=== PATIENT | male | born 1950 | race Hispanic/Latino ===

== ENCOUNTER 2018-01-24 21:51 | Emergency (ER) | payer MEDICARE ==
[~2018-01-24 21:51] MED LIST: GLIP1TAB6 PO; LEVO500T2 PO; LINA5TAB PO; OSEL75 PO; PRED50TA2 PO
[2018-01-24] MEDS ORDERED: LIDOCAINE HCL MPF 1% 5ML VIAL ONE (22:04)
[2018-01-24] MEDS ORDERED: TETANUS/DIPHTHERIA TOXOID [ADULT] 0.5 ML VIAL IM ONE (22:47)
== END 2018-01-24 23:05 | disposition home or self-care (01) ==
LOC: EDH 21:51
DX: S61.411A Laceration without foreign body of right hand, initial encounter (principal); E11.9 Type 2 diabetes mellitus without complications; W26.8XXA Contact with other sharp object(s), not elsewhere classified, initial encounter; Y93.89 Activity, other specified; Y92.096 Garden or yard of other non-institutional residence as the place of occurrence of the external cause; Y99.8 Other external cause status
CPT/HCPCS: 12042; 90471; 90714; 99284; J3490

== ENCOUNTER 2021-01-11 15:17 | Emergency (ER) | payer MEDICARE, OTHER ==
[~2021-01-11] VITALS: Ht 160 cm; Wt 68.0 kg
[2021-01-11] MEDS ORDERED: ACETAMINOPHEN 650 MG/20.3 ML UDCUP PEG ONE (15:30)
[2021-01-11 16:21] LABS: BASOPHILS % (AUTO) 0.2 % (0.0-5.0); HEMATOCRIT 40.5 % (42-54); LYMPHOCYTES % (AUTO) 18.4 % (21.0-51.0); MEAN CORPUSCULAR HEMOGLOBIN 30.6 pg (27.0-33.0); MEAN CORPUSCULAR HGB CONC 33.1 g/dL (32.0-36.0); MEAN CORPUSCULAR VOLUME 92.5 fL (79-99); MONOCYTES % (AUTO) 2.9 % (3.0-13.0); NEUTROPHILS % (AUTO) 77.8 % (40.0-77.0); PLATELET COUNT (AUTO) 89 K/uL (130-400); RED BLOOD CELL COUNT(AUTO) 4.38 MIL/uL (4.50-6.20); RED CELL DISTRIBUTION WIDTH 13.1 % (11.0-15.5); WHITE BLOOD COUNT (AUTO) 4.1 K/uL (4.8-10.8)
[2021-01-11 16:39] LABS: CREATININE 2.7 mg/dL (0.5-1.5); POTASSIUM 4.9 mmol/L (3.5-5.1)
[2021-01-11 16:43] LABS: ALBUMIN 2.9 g/dL (3.5-5.0); BILIRUBIN,TOTAL 0.4 mg/dL (0.2-1.0); CRP QUANTITATIVE 133.4 mg/L (0.00-9.0); TOTAL PROTEIN, SERUM 7.7 g/dL (6.0-8.3)
[2021-01-11] MEDS ORDERED: GUAIFENESIN-CODEINE 5 ML SYRUP PO ONE (17:00)
[2021-01-11] MEDS ORDERED: IVER3TAB PO (17:40)
[2021-01-11] MEDS ORDERED: FLUT1DIS IH (17:40)
[2021-01-11] MEDS ORDERED: ALBUHFA IH (17:40)
[2021-01-11] MEDS ORDERED: D-ME1POW16 PO (17:40)
[2021-01-11] MEDS ORDERED: CEFTRIAXONE 1G VIAL ONE (17:49)
[2021-01-11 18:40] VITALS: BP 101/63
== END 2021-01-11 18:54 | disposition home or self-care (01) ==
LOC: EDH 15:17
DX: U07.1 COVID-19 (principal); J22 Unspecified acute lower respiratory infection; B34.9 Viral infection, unspecified; I10 Essential (primary) hypertension; Z79.52 Long term (current) use of systemic steroids
CPT/HCPCS: 36415; 71045; 80053; 85025; 86140; 87635; 87804 ×2; 87880; 99284; C9803; J0696

== ENCOUNTER 2021-01-17 15:52 | Inpatient (IN) | payer OTHER ==
[~2021-01-17] VITALS: Ht 170.2 cm; Wt 63.9 kg
[~2021-01-17 15:52] MED LIST changes: +ALBUHFA IH; +D-ME1POW16 PO; +FLUT1DIS IH; +IVER3TAB PO
[2021-01-17 16:25] LABS: ABG BASE EXCESS -7.3 mmol/L (-2.0-3.0); ABG HCO3 16.8 mmol/L (21.0-28.0); ABG OXYGEN SATURATION 84.5 % (95.0-99.0); ABG PCO2 31 mmHg (35-48)
[2021-01-17 16:29] LABS: BASOPHILS % (AUTO) 0.2 % (0.0-5.0); HEMATOCRIT 36.8 % (42-54); LYMPHOCYTES % (AUTO) 4.8 % (21.0-51.0); MEAN CORPUSCULAR HEMOGLOBIN 30.5 pg (27.0-33.0); MEAN CORPUSCULAR HGB CONC 33.7 g/dL (32.0-36.0); MEAN CORPUSCULAR VOLUME 90.4 fL (79-99); MONOCYTES % (AUTO) 1.5 % (3.0-13.0); NEUTROPHILS % (AUTO) 92.3 % (40.0-77.0); PLATELET COUNT (AUTO) 105 K/uL (130-400); RED BLOOD CELL COUNT(AUTO) 4.07 MIL/uL (4.50-6.20); RED CELL DISTRIBUTION WIDTH 13.2 % (11.0-15.5); WHITE BLOOD COUNT (AUTO) 5.8 K/uL (4.8-10.8)
[2021-01-17] MEDS ORDERED: AZITHROMYCIN 500MG VIAL IVPB ONE (16:30)
[2021-01-17] MEDS ORDERED: SOLU-MEDROL 125MG VIAL IVP ONE (16:30)
[2021-01-17] MEDS ORDERED: CEFTRIAXONE 1G VIAL IVP ONE (16:30)
[2021-01-17] MEDS ORDERED: 0.9% NACL 250ML IVPB ONE (16:30)
[2021-01-17 16:46] LABS: ALBUMIN 1.9 g/dL (3.5-5.0); BILIRUBIN,TOTAL 0.7 mg/dL (0.2-1.0); CREATININE 3.7 mg/dL (0.5-1.5); POTASSIUM 4.6 mmol/L (3.5-5.1); TOTAL PROTEIN, SERUM 7.5 g/dL (6.0-8.3)
[2021-01-17 16:54] LABS: CRP QUANTITATIVE 452.2 mg/L (0.00-9.0)
[2021-01-17 17:07] VITALS: BP 135/84
[2021-01-17] MEDS ORDERED: SOLU-MEDROL 125MG VIAL ONE (17:50)
[2021-01-17] MEDS ORDERED: CEFTRIAXONE 1G VIAL ONE (17:51)
[2021-01-17] MEDS ORDERED: AZITHROMYCIN 500MG+NS 250ML 250 ML IV ONE (17:51)
[2021-01-17 17:52] LABS: ERYTHROCYTE SEDIMENTATION RATE 104 MM/HR (0-20)
[2021-01-17] MEDS: ALBUTEROL INHALER 90MCG/INH IH PRN ×2 (17:56→19:09)
[2021-01-17 18:48] VITALS: BP 126/61
[2021-01-17] MEDS ORDERED: ERGOCALCIFEROL (VITAMIN D2) 50,000 UNIT CAPSULE PO ONE (19:00)
[2021-01-17] MEDS ORDERED: LACTATED RINGERS 1000ML 1,000 ML IV SCH (19:00)
[2021-01-17 19:15] VITALS: BP 137/83
[2021-01-17 20:00] VITALS: BP 141/78
[2021-01-17] MEDS ORDERED: HEPARIN 5,000 UNIT VIAL ONE (20:33)
[2021-01-17 21:00] VITALS: BP 154/78
[2021-01-17] MEDS: CEFTRIAXONE 1G VIAL IVP SCH (21:00)
[2021-01-17] MEDS: DOXYCYCLINE 100MG+NS 250ML IV SCH (21:00)
[2021-01-17] MEDS: INSULIN GLARGINE 100 UNITS/ML 10 ML VIAL SQ SCH (21:10)
[2021-01-17] MEDS: DEXAMETHASONE SOD PHOSPHATE 4 MG/ML 1ML VIAL IVP SCH (21:10)
[2021-01-17] MEDS: INSULIN HUMULIN R 100 UNIT/ML 3ML SQ SCH (21:11)
[2021-01-17] MEDS ORDERED: ERGOCALCIFEROL (VITAMIN D2) 50,000 UNIT CAPSULE ONE (21:39)
[2021-01-17 23:20] VITALS: BP 154/86
[2021-01-18 03:37] VITALS: BP 154/88
[2021-01-18 05:26] LABS: BASOPHILS % (AUTO) 0.2 % (0.0-5.0); HEMATOCRIT 39.5 % (42-54); LYMPHOCYTES % (AUTO) 5.9 % (21.0-51.0); MEAN CORPUSCULAR HEMOGLOBIN 30.3 pg (27.0-33.0); MEAN CORPUSCULAR HGB CONC 33.4 g/dL (32.0-36.0); MEAN CORPUSCULAR VOLUME 90.8 fL (79-99); MONOCYTES % (AUTO) 1.9 % (3.0-13.0); NEUTROPHILS % (AUTO) 91.2 % (40.0-77.0); PLATELET COUNT (AUTO) 80 K/uL (130-400); RED BLOOD CELL COUNT(AUTO) 4.35 MIL/uL (4.50-6.20); RED CELL DISTRIBUTION WIDTH 13.2 % (11.0-15.5); WHITE BLOOD COUNT (AUTO) 4.7 K/uL (4.8-10.8)
[2021-01-18 05:35] LABS: HEMOGLOBIN A1C 10.8 % (4.0-6.0)
[2021-01-18 05:53] LABS: ALBUMIN 1.8 g/dL (3.5-5.0); BILIRUBIN,TOTAL 0.6 mg/dL (0.2-1.0); CREATININE 3.1 mg/dL (0.5-1.5); POTASSIUM 3.9 mmol/L (3.5-5.1); TOTAL PROTEIN, SERUM 7.5 g/dL (6.0-8.3)
[2021-01-18] MEDS: CEFTRIAXONE 1G VIAL IVP SCH ×2 (06:00→21:02)
[2021-01-18] MEDS: INSULIN HUMULIN R 100 UNIT/ML 3ML SQ SCH ×7 (06:02→20:58)
[2021-01-18] MEDS: DOXYCYCLINE 100MG+NS 250ML IV SCH ×2 (06:02→21:02)
[2021-01-18 06:40] LABS: CRP QUANTITATIVE 467.1 mg/L (0.00-9.0)
[2021-01-18 08:00] VITALS: BP 155/88
[2021-01-18] MEDS: ASCORBIC ACID 500 MG TAB PO SCH (09:09)
[2021-01-18] MEDS: ZINC SULFATE 220 CAPSULE PO SCH (09:09)
[2021-01-18] MEDS: ENOXAPARIN SODIUM 40 MG/0.4 ML SYRINGE SQ SCH (09:10)
[2021-01-18] MEDS: DEXAMETHASONE SOD PHOSPHATE 4 MG/ML 1ML VIAL IVP SCH (09:10)
[2021-01-18] MEDS: GUAIFENESIN-CODEINE 5 ML SYRUP PO PRN ×2 (11:01→23:35)
[2021-01-18] MEDS: ONDANSETRON 4MG INJ IVP PRN ×2 (11:02→21:09)
[2021-01-18] MEDS ORDERED: PHARMACY COMMUNICATION MISC SCH (11:30)
[2021-01-18] MEDS: [UNRECOGNIZED DRUG - REMARK] MISC SCH ×2 (11:30→19:30)
[2021-01-18 12:00] VITALS: BP 160/95
[2021-01-18 13:08] LABS: APPEARANCE,URINE Cloudy (CLEAR); BILIRUBIN,URINE Negative (NEGATIVE); COLOR,URINE Yellow (YELLOW); GLUCOSE, URINE (UA) >=1000 mg/dL (NEGATIVE); KETONES,URINE Trace mg/dL (NEGATIVE); LEUKOCYTE ESTERASE ,URINE Negative (NEGATIVE); NITRATE,URINE Negative (NEGATIVE); OCCULT BLOOD,URINE Small (NEGATIVE); PROTEIN,URINE POS 2+ mg/dL (NEGATIVE); UROBILINOGEN,URINE 0.2 mg/dL (0.2-1.0)
[2021-01-18 13:15] LABS: PROTEIN,URINE RANDOM 121.3 mg/dL (0-11.9)
[2021-01-18 13:22] LABS: BACTERIA,URINE Rare /HPF (None Seen); RBC,URINE 0-1 /HPF (0-1); SQUAMOUS EPITHELIAL CELL,UR Rare /HPF (0-2); WBC,URINE 0-1 /HPF (0-1)
[2021-01-18 15:20] VITALS: BP 142/85
[2021-01-18] MEDS ORDERED: INSULIN HUMULIN R 100 UNIT/ML 3ML SQ SCH (17:00)
[2021-01-18 20:00] VITALS: BP 129/87
[2021-01-18] MEDS: INSULIN GLARGINE 100 UNITS/ML 10 ML VIAL SQ SCH (20:58)
[2021-01-19] VITALS (12 sets, daily range): BP systolic 112–163; BP diastolic 58–104
[2021-01-19] MEDS: PROMETHAZINE HCL 6.25 MG/5 ML PO SCH (01:00)
[2021-01-19] MEDS ORDERED: ONDANSETRON 4MG INJ ONE (01:04)
[2021-01-19] MEDS: SOLU-MEDROL 40MG VIAL IVP SCH ×3 (01:06→18:31)
[2021-01-19] MEDS: ONDANSETRON 4MG INJ IVP PRN ×2 (01:35→05:30)
[2021-01-19] MEDS: [UNRECOGNIZED DRUG - REMARK] MISC SCH ×3 (03:30→19:30)
[2021-01-19 05:38] LABS: BASOPHILS % (AUTO) 0.4 % (0.0-5.0); HEMATOCRIT 37.4 % (42-54); LYMPHOCYTES % (AUTO) 6.1 % (21.0-51.0); MEAN CORPUSCULAR HGB CONC 33.4 g/dL (32.0-36.0); MEAN CORPUSCULAR VOLUME 89.9 fL (79-99); MONOCYTES % (AUTO) 2.2 % (3.0-13.0); NEUTROPHILS % (AUTO) 90.5 % (40.0-77.0); PLATELET COUNT (AUTO) 83 K/uL (130-400); RED BLOOD CELL COUNT(AUTO) 4.16 MIL/uL (4.50-6.20); RED CELL DISTRIBUTION WIDTH 13.2 % (11.0-15.5); WHITE BLOOD COUNT (AUTO) 4.9 K/uL (4.8-10.8)
[2021-01-19 06:09] LABS: ALBUMIN 1.9 g/dL (3.5-5.0); BILIRUBIN,TOTAL 0.5 mg/dL (0.2-1.0); CREATININE 2.3 mg/dL (0.5-1.5); POTASSIUM 3.6 mmol/L (3.5-5.1); TOTAL PROTEIN, SERUM 7.4 g/dL (6.0-8.3)
[2021-01-19 06:15] LABS: CRP QUANTITATIVE 249.7 mg/L (0.00-9.0)
[2021-01-19] MEDS: DOXYCYCLINE 100MG+NS 250ML IV SCH (06:27)
[2021-01-19] MEDS: GUAIFENESIN-CODEINE 5 ML SYRUP PO PRN (06:27)
[2021-01-19] MEDS: CEFTRIAXONE 1G VIAL IVP SCH (06:27)
[2021-01-19] MEDS ORDERED: INSULIN GLARGINE 100 UNITS/ML 10 ML VIAL SQ SCH (07:00)
[2021-01-19] MEDS: INSULIN HUMULIN R 100 UNIT/ML 3ML SQ SCH ×7 (07:30→21:00)
[2021-01-19] MEDS: ZINC SULFATE 220 CAPSULE PO SCH (09:02)
[2021-01-19] MEDS: ASCORBIC ACID 500 MG TAB PO SCH (09:02)
[2021-01-19] MEDS: ENOXAPARIN SODIUM 40 MG/0.4 ML SYRINGE SQ SCH (09:10)
[2021-01-19] MEDS ORDERED: LORAZEPAM 0.5 MG TABLET PO ONE ×2 (13:00→16:00)
[2021-01-19 13:21] LABS: ABG BASE EXCESS 0.5 mmol/L (-2.0-3.0); ABG HCO3 25.4 mmol/L (21.0-28.0); ABG OXYGEN SATURATION 94.4 % (95.0-99.0); ABG PCO2 42 mmHg (35-48)
[2021-01-19] MEDS ORDERED: ALBUTEROL INHALER 90MCG/INH IH PRN (13:30)
[2021-01-19] MEDS ORDERED: ZOSYN 3.375GM+NS 50ML 3.38 GM in 0.9%NACL 50ML 50 ML IV SCH (13:30)
[2021-01-19] MEDS ORDERED: LORAZEPAM 0.5 MG TABLET ONE (14:47)
[2021-01-19] MEDS: ZOSYN 3.375GM +NS 50ML IV SCH (14:51)
[2021-01-19] MEDS: 0.9%NACL 50ML 50 ML IV SCH (14:51)
[2021-01-19] MEDS ORDERED: DEXMEDETOMIDINE 400MCG/NS100ML IV ONE ×2 (16:17→23:37)
[2021-01-19] MEDS: INSULIN GLARGINE 100 UNITS/ML 10 ML VIAL SQ SCH (21:10)
[2021-01-20] VITALS (24 sets, daily range): BP systolic 118–179; BP diastolic 61–100
[2021-01-20] MEDS: PROMETHAZINE HCL 6.25 MG/5 ML PO SCH (01:00)
[2021-01-20] MEDS: 0.9%NACL 50ML 50 ML IV SCH ×2 (01:30→12:19)
[2021-01-20] MEDS: ZOSYN 3.375GM +NS 50ML IV SCH ×2 (02:22→12:19)
[2021-01-20] MEDS: SOLU-MEDROL 40MG VIAL IVP SCH ×3 (02:22→16:49)
[2021-01-20] MEDS: [UNRECOGNIZED DRUG - REMARK] MISC SCH ×3 (03:30→18:37)
[2021-01-20 04:46] LABS: BASOPHILS % (AUTO) 0.2 % (0.0-5.0); HEMATOCRIT 40.3 % (42-54); LYMPHOCYTES % (AUTO) 4.2 % (21.0-51.0); MEAN CORPUSCULAR HEMOGLOBIN 29.7 pg (27.0-33.0); MEAN CORPUSCULAR HGB CONC 32.3 g/dL (32.0-36.0); MONOCYTES % (AUTO) 2.3 % (3.0-13.0); NEUTROPHILS % (AUTO) 92.2 % (40.0-77.0); PLATELET COUNT (AUTO) 72 K/uL (130-400); RED BLOOD CELL COUNT(AUTO) 4.38 MIL/uL (4.50-6.20); RED CELL DISTRIBUTION WIDTH 13.7 % (11.0-15.5); WHITE BLOOD COUNT (AUTO) 6.2 K/uL (4.8-10.8)
[2021-01-20 05:22] LABS: ALBUMIN 1.9 g/dL (3.5-5.0); BILIRUBIN,TOTAL 0.7 mg/dL (0.2-1.0); CREATININE 2.2 mg/dL (0.5-1.5); CRP QUANTITATIVE 132.9 mg/L (0.00-9.0); POTASSIUM 3.3 mmol/L (3.5-5.1); TOTAL PROTEIN, SERUM 7.6 g/dL (6.0-8.3)
[2021-01-20] MEDS: INSULIN HUMULIN R 100 UNIT/ML 3ML SQ SCH ×7 (06:17→21:55)
[2021-01-20] MEDS ORDERED: DEXMEDETOMIDINE 400MCG/NS100ML IV ONE (07:19)
[2021-01-20] MEDS: ZINC SULFATE 220 CAPSULE PO SCH (08:18)
[2021-01-20] MEDS: ASCORBIC ACID 500 MG TAB PO SCH (08:18)
[2021-01-20] MEDS: DEXTROSE 5%-WATER 1,000 ML IV SCH (10:35)
[2021-01-20] MEDS ORDERED: PHARMACY COMMUNICATION MISC SCH (16:00)
[2021-01-20] MEDS: DEXMEDETOMIDINE 400MCG/NS100ML IV SCH (17:09)
[2021-01-20] MEDS ORDERED: FAMOTIDINE 20MG VIAL IV SCH (21:00)
[2021-01-20] MEDS: HEPARIN 5,000 UNIT VIAL SQ SCH (21:51)
[2021-01-20] MEDS: INSULIN GLARGINE 100 UNITS/ML 10 ML VIAL SQ SCH (21:54)
[2021-01-21] VITALS (24 sets, daily range): BP systolic 110–179; BP diastolic 59–101
[2021-01-21] MEDS: SOLU-MEDROL 40MG VIAL IVP SCH ×3 (01:53→16:41)
[2021-01-21] MEDS: ZOSYN 3.375GM +NS 50ML IV SCH ×2 (01:54→13:21)
[2021-01-21] MEDS: 0.9%NACL 50ML 50 ML IV SCH ×2 (01:54→13:21)
[2021-01-21 04:21] LABS: BASOPHILS % (AUTO) 0.1 % (0.0-5.0); HEMATOCRIT 41.1 % (42-54); LYMPHOCYTES % (AUTO) 2.5 % (21.0-51.0); MEAN CORPUSCULAR HGB CONC 33.1 g/dL (32.0-36.0); MEAN CORPUSCULAR VOLUME 90.7 fL (79-99); MONOCYTES % (AUTO) 1.7 % (3.0-13.0); NEUTROPHILS % (AUTO) 94.4 % (40.0-77.0); PLATELET COUNT (AUTO) 83 K/uL (130-400); RED BLOOD CELL COUNT(AUTO) 4.53 MIL/uL (4.50-6.20); RED CELL DISTRIBUTION WIDTH 13.9 % (11.0-15.5); WHITE BLOOD COUNT (AUTO) 8.7 K/uL (4.8-10.8)
[2021-01-21 04:33] LABS: CREATININE 1.8 mg/dL (0.5-1.5); CRP QUANTITATIVE 77.1 mg/L (0.00-9.0); POTASSIUM 3.5 mmol/L (3.5-5.1)
[2021-01-21] MEDS: DEXMEDETOMIDINE 400MCG/NS100ML IV SCH ×3 (04:45→19:48)
[2021-01-21] MEDS: INSULIN HUMULIN R 100 UNIT/ML 3ML SQ SCH ×7 (07:00→19:50)
[2021-01-21] MEDS: DEXTROSE 5%-WATER 1,000 ML IV SCH ×2 (08:24→11:51)
[2021-01-21] MEDS: PROMETHAZINE HCL 6.25 MG/5 ML PO SCH (08:24)
[2021-01-21] MEDS: ZINC SULFATE 220 CAPSULE PO SCH (08:25)
[2021-01-21] MEDS: ASCORBIC ACID 500 MG TAB PO SCH (08:25)
[2021-01-21] MEDS: HEPARIN 5,000 UNIT VIAL SQ SCH (08:25)
[2021-01-21] MEDS: AMLODIPINE 5 MG TAB PO SCH (09:03)
[2021-01-21] MEDS: HYDRALAZINE 20MG/ML VIAL IV PRN ×2 (10:48→16:40)
[2021-01-21] MEDS ORDERED: LISI10TA24 PO (14:37)
[2021-01-21] MEDS ORDERED: HYDR25SU38 RC (14:37)
[2021-01-21] MEDS ORDERED: EMPA10TA PO (14:37)
[2021-01-21] MEDS ORDERED: ATOR10 PO (14:37)
[2021-01-21] MEDS ORDERED: GLIP-162 PO (14:37)
[2021-01-21] MEDS: [UNRECOGNIZED DRUG - REMARK] MISC SCH (19:18)
[2021-01-21] MEDS: INSULIN GLARGINE 100 UNITS/ML 10 ML VIAL SQ SCH (21:55)
[2021-01-22] VITALS (28 sets, daily range): BP systolic 108–172; BP diastolic 63–98
[2021-01-22] MEDS: PROMETHAZINE HCL 6.25 MG/5 ML PO SCH (00:09)
[2021-01-22] MEDS: 0.9%NACL 50ML 50 ML IV SCH ×2 (00:10→12:14)
[2021-01-22] MEDS: ZOSYN 3.375GM +NS 50ML IV SCH ×2 (00:10→12:14)
[2021-01-22] MEDS: DEXTROSE 5%-WATER 1,000 ML IV SCH (01:29)
[2021-01-22] MEDS: SOLU-MEDROL 40MG VIAL IVP SCH ×3 (01:29→16:47)
[2021-01-22] MEDS: [UNRECOGNIZED DRUG - REMARK] MISC SCH ×3 (02:41→19:30)
[2021-01-22] MEDS: HYDRALAZINE 20MG/ML VIAL IV PRN (03:09)
[2021-01-22] MEDS: DEXMEDETOMIDINE 400MCG/NS100ML IV SCH ×3 (03:22→20:16)
[2021-01-22 04:46] LABS: BASOPHILS % (AUTO) 0.2 % (0.0-5.0); HEMATOCRIT 40.4 % (42-54); LYMPHOCYTES % (AUTO) 2.6 % (21.0-51.0); MEAN CORPUSCULAR HEMOGLOBIN 29.2 pg (27.0-33.0); MEAN CORPUSCULAR HGB CONC 31.7 g/dL (32.0-36.0); MEAN CORPUSCULAR VOLUME 92.2 fL (79-99); NEUTROPHILS % (AUTO) 92.8 % (40.0-77.0); PLATELET COUNT (AUTO) 71 K/uL (130-400); RED BLOOD CELL COUNT(AUTO) 4.38 MIL/uL (4.50-6.20); RED CELL DISTRIBUTION WIDTH 13.8 % (11.0-15.5); WHITE BLOOD COUNT (AUTO) 8.7 K/uL (4.8-10.8)
[2021-01-22 05:06] LABS: ALBUMIN 1.7 g/dL (3.5-5.0); CREATININE 1.6 mg/dL (0.5-1.5); CRP QUANTITATIVE 46.5 mg/L (0.00-9.0); POTASSIUM 3.3 mmol/L (3.5-5.1); TOTAL PROTEIN, SERUM 6.3 g/dL (6.0-8.3)
[2021-01-22] MEDS ORDERED: POTASSIUM CHLORIDE 20MEQ/100ML 100 ML IV PRN (05:30)
[2021-01-22] MEDS ORDERED: LIDOCAINE HCL-MPF 1% 2ML VIAL IV PRN (05:30)
[2021-01-22] MEDS: INSULIN HUMULIN R 100 UNIT/ML 3ML SQ SCH ×8 (05:42→20:30)
[2021-01-22] MEDS: KCL 20 MEQ ERTAB PO PRN ×2 (06:11→08:21)
[2021-01-22] MEDS: ZINC SULFATE 220 CAPSULE PO SCH (07:49)
[2021-01-22] MEDS: ASCORBIC ACID 500 MG TAB PO SCH (07:49)
[2021-01-22] MEDS: ENOXAPARIN SODIUM 80 MG/0.8 ML SQ SCH (07:49)
[2021-01-22] MEDS: PANTOPRAZOLE 40 MG/VIAL IVP SCH (07:49)
[2021-01-22] MEDS: AMLODIPINE 5 MG TAB PO SCH (07:49)
[2021-01-22] MEDS: POTASSIUM CHLORIDE 10% ELIXIR 20 MEQ/15 ML UDCUP PO PRN ×3 (08:21→23:49)
[2021-01-22] MEDS: INSULIN GLARGINE 100 UNITS/ML 10 ML VIAL SQ SCH (20:53)
[2021-01-23] VITALS (22 sets, daily range): BP systolic 123–170; BP diastolic 60–96
[2021-01-23] MEDS: PROMETHAZINE HCL 6.25 MG/5 ML PO SCH (01:00)
[2021-01-23] MEDS: SOLU-MEDROL 40MG VIAL IVP SCH ×3 (02:21→18:05)
[2021-01-23] MEDS: ZOSYN 3.375GM +NS 50ML IV SCH ×2 (02:21→13:33)
[2021-01-23] MEDS: 0.9%NACL 50ML 50 ML IV SCH ×2 (02:21→13:33)
[2021-01-23] MEDS: [UNRECOGNIZED DRUG - REMARK] MISC SCH ×3 (03:30→19:30)
[2021-01-23] MEDS: HYDRALAZINE 20MG/ML VIAL IV PRN (03:52)
[2021-01-23 04:19] LABS: BASOPHILS % (AUTO) 0.3 % (0.0-5.0); EOSINOPHILS % (AUTO) 0.1 % (0.0-8.0); HEMATOCRIT 40.6 % (42-54); LYMPHOCYTES % (AUTO) 6.3 % (21.0-51.0); MEAN CORPUSCULAR HEMOGLOBIN 30.2 pg (27.0-33.0); MEAN CORPUSCULAR HGB CONC 32.8 g/dL (32.0-36.0); MEAN CORPUSCULAR VOLUME 92.1 fL (79-99); MONOCYTES % (AUTO) 2.2 % (3.0-13.0); NEUTROPHILS % (AUTO) 88.4 % (40.0-77.0); PLATELET COUNT (AUTO) 62 K/uL (130-400); RED BLOOD CELL COUNT(AUTO) 4.41 MIL/uL (4.50-6.20); RED CELL DISTRIBUTION WIDTH 13.9 % (11.0-15.5); WHITE BLOOD COUNT (AUTO) 7.4 K/uL (4.8-10.8)
[2021-01-23] MEDS: DEXMEDETOMIDINE 400MCG/NS100ML IV SCH ×3 (04:22→21:22)
[2021-01-23 04:39] LABS: ALBUMIN 1.7 g/dL (3.5-5.0); BILIRUBIN,TOTAL 0.8 mg/dL (0.2-1.0); CREATININE 1.4 mg/dL (0.5-1.5); CRP QUANTITATIVE 29.9 mg/L (0.00-9.0); POTASSIUM 4.6 mmol/L (3.5-5.1); TOTAL PROTEIN, SERUM 6.3 g/dL (6.0-8.3)
[2021-01-23] MEDS: INSULIN HUMULIN R 100 UNIT/ML 3ML SQ SCH ×7 (07:30→21:00)
[2021-01-23] MEDS: PANTOPRAZOLE 40 MG/VIAL IVP SCH (08:36)
[2021-01-23] MEDS: AMLODIPINE 5 MG TAB PO SCH (08:36)
[2021-01-23] MEDS: ZINC SULFATE 220 CAPSULE PO SCH (08:36)
[2021-01-23] MEDS: ASCORBIC ACID 500 MG TAB PO SCH (08:37)
[2021-01-23] MEDS: ENOXAPARIN SODIUM 80 MG/0.8 ML SQ SCH (08:38)
[2021-01-23] MEDS ORDERED: PHARMACY COMMUNICATION MISC SCH ×2 (09:00)
[2021-01-23] MEDS: BARICITINIB (EUA) 2 MG TABLET PO SCH (13:35)
[2021-01-23] MEDS ORDERED: REMDESIVIR (EUA) 520 200 MG in 0.9% NACL 250ML 250 ML IV ONE (14:00)
[2021-01-23] MEDS ORDERED: COMPOUND IV REFRIGERATED 1 EACH IVSOLN MISC PRN (14:00)
[2021-01-23] MEDS ORDERED: ENOXAPARIN SODIUM 80 MG/0.8 ML SQ SCH (21:00)
[2021-01-23] MEDS: ENOXAPARIN SODIUM 30 MG/0.3 ML SQ SCH (21:09)
[2021-01-23] MEDS: INSULIN GLARGINE 100 UNITS/ML 10 ML VIAL SQ SCH (21:16)
[2021-01-24] VITALS (9 sets, daily range): BP systolic 119–164; BP diastolic 56–92
[2021-01-24] MEDS: PROMETHAZINE HCL 6.25 MG/5 ML PO SCH (01:00)
[2021-01-24] MEDS: SOLU-MEDROL 40MG VIAL IVP SCH ×2 (02:09→09:32)
[2021-01-24] MEDS: ZOSYN 3.375GM +NS 50ML IV SCH ×2 (02:09→14:33)
[2021-01-24] MEDS: 0.9%NACL 50ML 50 ML IV SCH ×2 (02:09→14:33)
[2021-01-24] MEDS: [UNRECOGNIZED DRUG - REMARK] MISC SCH (02:18)
[2021-01-24 03:55] LABS: BASOPHILS % (AUTO) 0.3 % (0.0-5.0); EOSINOPHILS % (AUTO) 0.1 % (0.0-8.0); HEMATOCRIT 39.8 % (42-54); LYMPHOCYTES % (AUTO) 8.1 % (21.0-51.0); MEAN CORPUSCULAR HGB CONC 32.2 g/dL (32.0-36.0); MEAN CORPUSCULAR VOLUME 93.2 fL (79-99); MONOCYTES % (AUTO) 2.8 % (3.0-13.0); NEUTROPHILS % (AUTO) 84.8 % (40.0-77.0); PLATELET COUNT (AUTO) 82 K/uL (130-400); RED BLOOD CELL COUNT(AUTO) 4.27 MIL/uL (4.50-6.20); RED CELL DISTRIBUTION WIDTH 13.8 % (11.0-15.5); WHITE BLOOD COUNT (AUTO) 7.1 K/uL (4.8-10.8)
[2021-01-24 04:13] LABS: ALBUMIN 1.7 g/dL (3.5-5.0); BILIRUBIN,TOTAL 0.6 mg/dL (0.2-1.0); CREATININE 1.3 mg/dL (0.5-1.5); CRP QUANTITATIVE 20.5 mg/L (0.00-9.0); POTASSIUM 3.9 mmol/L (3.5-5.1); TOTAL PROTEIN, SERUM 5.7 g/dL (6.0-8.3)
[2021-01-24] MEDS: REMDESIVIR LABS MISC SCH (05:59)
[2021-01-24] MEDS: INSULIN HUMULIN R 100 UNIT/ML 3ML SQ SCH ×7 (06:00→20:27)
[2021-01-24] MEDS: BARICITINIB (EUA) 2 MG TABLET PO SCH (09:29)
[2021-01-24] MEDS: ASCORBIC ACID 500 MG TAB PO SCH (09:29)
[2021-01-24] MEDS: AMLODIPINE 5 MG TAB PO SCH (09:30)
[2021-01-24] MEDS: PANTOPRAZOLE 40 MG/VIAL IVP SCH (09:30)
[2021-01-24] MEDS: ZINC SULFATE 220 CAPSULE PO SCH (09:30)
[2021-01-24] MEDS: ENOXAPARIN SODIUM 30 MG/0.3 ML SQ SCH ×2 (09:31→20:23)
[2021-01-24] MEDS ORDERED: LACTULOSE 20 GM/30 ML UDCUP PO ONE (13:50)
[2021-01-24] MEDS: REMDESIVIR (EUA) 520 100 MG in 0.9% NACL 250ML 250 ML IV SCH (14:33)
[2021-01-24] MEDS: DEXAMETHASONE 4 MG TAB PO SCH (20:18)
[2021-01-24] MEDS: INSULIN GLARGINE 100 UNITS/ML 10 ML VIAL SQ SCH (20:26)
[2021-01-25] VITALS (7 sets, daily range): BP systolic 120–171; BP diastolic 76–91
[2021-01-25] MEDS: PROMETHAZINE HCL 6.25 MG/5 ML PO SCH (01:00)
[2021-01-25] MEDS: ZOSYN 3.375GM +NS 50ML IV SCH ×2 (01:38→13:13)
[2021-01-25] MEDS: 0.9%NACL 50ML 50 ML IV SCH ×2 (01:38→13:13)
[2021-01-25 05:10] LABS: BASOPHILS % (AUTO) 0.2 % (0.0-5.0); MEAN CORPUSCULAR HEMOGLOBIN 30.1 pg (27.0-33.0); MEAN CORPUSCULAR HGB CONC 32.6 g/dL (32.0-36.0); MEAN CORPUSCULAR VOLUME 92.2 fL (79-99); MONOCYTES % (AUTO) 4.7 % (3.0-13.0); NEUTROPHILS % (AUTO) 87.2 % (40.0-77.0); PLATELET COUNT (AUTO) 104 K/uL (130-400); RED BLOOD CELL COUNT(AUTO) 4.12 MIL/uL (4.50-6.20); WHITE BLOOD COUNT (AUTO) 10.5 K/uL (4.8-10.8)
[2021-01-25 05:36] LABS: ALBUMIN 1.7 g/dL (3.5-5.0); BILIRUBIN,TOTAL 0.7 mg/dL (0.2-1.0); CREATININE 1.7 mg/dL (0.5-1.5); POTASSIUM 4.1 mmol/L (3.5-5.1); TOTAL PROTEIN, SERUM 5.6 g/dL (6.0-8.3)
[2021-01-25] MEDS: INSULIN HUMULIN R 100 UNIT/ML 3ML SQ SCH ×7 (05:56→20:18)
[2021-01-25] MEDS: ASCORBIC ACID 500 MG TAB PO SCH (08:37)
[2021-01-25] MEDS: ZINC SULFATE 220 CAPSULE PO SCH (08:37)
[2021-01-25] MEDS: DEXAMETHASONE 4 MG TAB PO SCH ×2 (08:37→20:26)
[2021-01-25] MEDS: AMLODIPINE 5 MG TAB PO SCH (08:37)
[2021-01-25] MEDS: BARICITINIB (EUA) 2 MG TABLET PO SCH (08:37)
[2021-01-25] MEDS: ENOXAPARIN SODIUM 30 MG/0.3 ML SQ SCH (08:38)
[2021-01-25] MEDS: PANTOPRAZOLE 40 MG/VIAL IVP SCH (08:38)
[2021-01-25] MEDS ORDERED: DOCUSATE SODIUM 100 MG CAP PO SCH (09:00)
[2021-01-25] MEDS: [UNRECOGNIZED DRUG - REMARK] MISC SCH (13:12)
[2021-01-25] MEDS: REMDESIVIR LABS MISC SCH (13:12)
[2021-01-25] MEDS: REMDESIVIR (EUA) 520 100 MG in 0.9% NACL 250ML 250 ML IV SCH (13:46)
[2021-01-25] MEDS: DOCUSATE SODIUM 100 MG CAP PO SCH (16:15)
[2021-01-25] MEDS: GUAIFENESIN-CODEINE 5 ML SYRUP PO PRN (16:15)
[2021-01-25] MEDS ORDERED: POLYETHYLENE GLYCOL 3350 17 GM POWD.PACK PO SCH (18:00)
[2021-01-25] MEDS: POLYETHYLENE GLYCOL 3350 17 GM POWD.PACK PO SCH (19:45)
[2021-01-25] MEDS: INSULIN GLARGINE 100 UNITS/ML 10 ML VIAL SQ SCH (20:27)
[2021-01-25] MEDS: ENOXAPARIN SODIUM 80 MG/0.8 ML SQ SCH (20:29)
[2021-01-26] MEDS: PROMETHAZINE HCL 6.25 MG/5 ML PO SCH (01:00)
[2021-01-26] MEDS: DOCUSATE SODIUM 100 MG CAP PO SCH ×3 (01:09→15:42)
[2021-01-26] MEDS: ZOSYN 3.375GM +NS 50ML IV SCH ×2 (01:09→12:40)
[2021-01-26] MEDS: 0.9%NACL 50ML 50 ML IV SCH ×2 (01:09→12:40)
[2021-01-26 03:03] VITALS: BP 156/90
[2021-01-26 04:43] LABS: BASOPHILS % (AUTO) 0.2 % (0.0-5.0); HEMATOCRIT 38.9 % (42-54); LYMPHOCYTES % (AUTO) 5.5 % (21.0-51.0); MEAN CORPUSCULAR HGB CONC 32.1 g/dL (32.0-36.0); MEAN CORPUSCULAR VOLUME 93.3 fL (79-99); PLATELET COUNT (AUTO) 103 K/uL (130-400); RED BLOOD CELL COUNT(AUTO) 4.17 MIL/uL (4.50-6.20); RED CELL DISTRIBUTION WIDTH 13.9 % (11.0-15.5); WHITE BLOOD COUNT (AUTO) 9.1 K/uL (4.8-10.8)
[2021-01-26 04:54] LABS: ALBUMIN 1.9 g/dL (3.5-5.0); BILIRUBIN,TOTAL 0.7 mg/dL (0.2-1.0); CREATININE 1.5 mg/dL (0.5-1.5); CRP QUANTITATIVE 32.4 mg/L (0.00-9.0); POTASSIUM 4.5 mmol/L (3.5-5.1); TOTAL PROTEIN, SERUM 5.8 g/dL (6.0-8.3)
[2021-01-26] MEDS: REMDESIVIR LABS MISC SCH (06:00)
[2021-01-26] MEDS: INSULIN HUMULIN R 100 UNIT/ML 3ML SQ SCH ×7 (06:41→21:03)
[2021-01-26] MEDS: BARICITINIB (EUA) 2 MG TABLET PO SCH (07:36)
[2021-01-26] MEDS: DEXAMETHASONE 4 MG TAB PO SCH ×2 (07:37→20:53)
[2021-01-26] MEDS: ZINC SULFATE 220 CAPSULE PO SCH (07:37)
[2021-01-26] MEDS: AMLODIPINE 5 MG TAB PO SCH (07:37)
[2021-01-26] MEDS: ASCORBIC ACID 500 MG TAB PO SCH (07:37)
[2021-01-26] MEDS: PANTOPRAZOLE 40 MG/VIAL IVP SCH (07:38)
[2021-01-26] MEDS: ENOXAPARIN SODIUM 80 MG/0.8 ML SQ SCH ×2 (07:38→20:53)
[2021-01-26 08:07] VITALS: BP 155/84
[2021-01-26] MEDS ORDERED: SENNOSIDES 8.6 MG TABLET PO SCH (09:00)
[2021-01-26 11:58] VITALS: BP 138/77
[2021-01-26] MEDS: REMDESIVIR (EUA) 520 100 MG in 0.9% NACL 250ML 250 ML IV SCH (12:40)
[2021-01-26] MEDS: POLYETHYLENE GLYCOL 3350 17 GM POWD.PACK PO SCH (15:42)
[2021-01-26 15:56] VITALS: BP 140/80
[2021-01-26 20:18] VITALS: BP 142/99
[2021-01-26] MEDS: INSULIN GLARGINE 100 UNITS/ML 10 ML VIAL SQ SCH (21:04)
[2021-01-27 00:06] VITALS: BP 138/76
[2021-01-27] MEDS: DOCUSATE SODIUM 100 MG CAP PO SCH ×3 (01:00→15:21)
[2021-01-27] MEDS: PROMETHAZINE HCL 6.25 MG/5 ML PO SCH (01:00)
[2021-01-27] MEDS: 0.9%NACL 50ML 50 ML IV SCH ×2 (01:30→10:57)
[2021-01-27] MEDS: ZOSYN 3.375GM +NS 50ML IV SCH (01:30)
[2021-01-27 03:58] VITALS: BP 152/85
[2021-01-27 05:03] LABS: HEMATOCRIT 37.2 % (42-54); MEAN CORPUSCULAR HEMOGLOBIN 29.7 pg (27.0-33.0); MEAN CORPUSCULAR HGB CONC 32.3 g/dL (32.0-36.0); MEAN CORPUSCULAR VOLUME 92.1 fL (79-99); RED BLOOD CELL COUNT(AUTO) 4.04 MIL/uL (4.50-6.20); RED CELL DISTRIBUTION WIDTH 13.9 % (11.0-15.5); WHITE BLOOD COUNT (AUTO) 9.1 K/uL (4.8-10.8)
[2021-01-27 05:18] LABS: CREATININE 1.5 mg/dL (0.5-1.5); MAGNESIUM 1.8 mg/dL (1.80-2.40); POTASSIUM 4.7 mmol/L (3.5-5.1)
[2021-01-27] MEDS: REMDESIVIR LABS MISC SCH (06:00)
[2021-01-27] MEDS: INSULIN HUMULIN R 100 UNIT/ML 3ML SQ SCH ×8 (06:21→21:00)
[2021-01-27 08:00] VITALS: BP 136/73
[2021-01-27] MEDS: ASCORBIC ACID 500 MG TAB PO SCH (08:16)
[2021-01-27] MEDS: ZINC SULFATE 220 CAPSULE PO SCH (08:16)
[2021-01-27] MEDS: PANTOPRAZOLE 40 MG TAB DR PO SCH (08:16)
[2021-01-27] MEDS: DEXAMETHASONE 4 MG TAB PO SCH ×2 (08:16→20:35)
[2021-01-27] MEDS: BARICITINIB (EUA) 2 MG TABLET PO SCH (08:17)
[2021-01-27] MEDS: ENOXAPARIN SODIUM 80 MG/0.8 ML SQ SCH ×2 (08:17→20:35)
[2021-01-27] MEDS: AMLODIPINE 5 MG TAB PO SCH (08:17)
[2021-01-27 12:00] VITALS: BP 126/72
[2021-01-27] MEDS: REMDESIVIR (EUA) 520 100 MG in 0.9% NACL 250ML 250 ML IV SCH (12:51)
[2021-01-27 16:00] VITALS: BP 142/74
[2021-01-27] MEDS ORDERED: BENZOCAINE/MENTH/CETYLPYRD CL 1 EACH LOZENGE MM ONE (16:26)
[2021-01-27 19:50] VITALS: BP 138/72
[2021-01-27] MEDS: INSULIN GLARGINE 100 UNITS/ML 10 ML VIAL SQ SCH (21:00)
[2021-01-28] VITALS (7 sets, daily range): BP systolic 90–151; BP diastolic 52–89
[2021-01-28] MEDS: 0.9%NACL 50ML 50 ML IV SCH ×2 (01:30→13:30)
[2021-01-28] MEDS: GUAIFENESIN-CODEINE 5 ML SYRUP PO PRN ×2 (01:33→19:58)
[2021-01-28] MEDS: DOCUSATE SODIUM 100 MG CAP PO SCH ×3 (01:33→17:00)
[2021-01-28 04:41] LABS: HEMATOCRIT 36.6 % (42-54); MEAN CORPUSCULAR HEMOGLOBIN 30.2 pg (27.0-33.0); MEAN CORPUSCULAR HGB CONC 32.2 g/dL (32.0-36.0); MEAN CORPUSCULAR VOLUME 93.6 fL (79-99); RED BLOOD CELL COUNT(AUTO) 3.91 MIL/uL (4.50-6.20); RED CELL DISTRIBUTION WIDTH 13.7 % (11.0-15.5)
[2021-01-28 05:03] LABS: CREATININE 1.3 mg/dL (0.5-1.5); POTASSIUM 5.3 mmol/L (3.5-5.1)
[2021-01-28] MEDS: INSULIN HUMULIN R 100 UNIT/ML 3ML SQ SCH ×7 (06:15→20:09)
[2021-01-28] MEDS: AMLODIPINE 5 MG TAB PO SCH (08:57)
[2021-01-28] MEDS: ZINC SULFATE 220 CAPSULE PO SCH (08:57)
[2021-01-28] MEDS: ASCORBIC ACID 500 MG TAB PO SCH (08:57)
[2021-01-28] MEDS: BARICITINIB (EUA) 2 MG TABLET PO SCH (08:57)
[2021-01-28] MEDS: PANTOPRAZOLE 40 MG TAB DR PO SCH (08:57)
[2021-01-28] MEDS: DEXAMETHASONE 4 MG TAB PO SCH ×2 (08:57→19:58)
[2021-01-28] MEDS: ENOXAPARIN SODIUM 80 MG/0.8 ML SQ SCH ×2 (08:58→20:10)
[2021-01-28] MEDS: INSULIN GLARGINE 100 UNITS/ML 10 ML VIAL SQ SCH (20:08)
[2021-01-29] MEDS: GUAIFENESIN-CODEINE 5 ML SYRUP PO PRN ×2 (00:31→20:18)
[2021-01-29] MEDS: DOCUSATE SODIUM 100 MG CAP PO SCH ×3 (00:31→16:46)
[2021-01-29] MEDS: 0.9%NACL 50ML 50 ML IV SCH ×2 (01:30→13:37)
[2021-01-29 04:02] VITALS: BP 134/80
[2021-01-29 04:13] LABS: HEMATOCRIT 34.9 % (42-54); MEAN CORPUSCULAR HEMOGLOBIN 30.2 pg (27.0-33.0); MEAN CORPUSCULAR HGB CONC 33.5 g/dL (32.0-36.0); MEAN CORPUSCULAR VOLUME 90.2 fL (79-99); RED BLOOD CELL COUNT(AUTO) 3.87 MIL/uL (4.50-6.20); RED CELL DISTRIBUTION WIDTH 13.5 % (11.0-15.5); WHITE BLOOD COUNT (AUTO) 8.5 K/uL (4.8-10.8)
[2021-01-29 04:31] LABS: ALBUMIN 1.8 g/dL (3.5-5.0); BILIRUBIN,TOTAL 0.6 mg/dL (0.2-1.0); CREATININE 1.5 mg/dL (0.5-1.5); CRP QUANTITATIVE 22.6 mg/L (0.00-9.0); TOTAL PROTEIN, SERUM 5.8 g/dL (6.0-8.3)
[2021-01-29] MEDS: INSULIN HUMULIN R 100 UNIT/ML 3ML SQ SCH ×7 (06:04→20:27)
[2021-01-29 08:30] VITALS: BP 133/64
[2021-01-29] MEDS: ENOXAPARIN SODIUM 80 MG/0.8 ML SQ SCH ×2 (09:12→20:18)
[2021-01-29] MEDS: ASCORBIC ACID 500 MG TAB PO SCH (09:12)
[2021-01-29] MEDS: BARICITINIB (EUA) 2 MG TABLET PO SCH (09:13)
[2021-01-29] MEDS: AMLODIPINE 5 MG TAB PO SCH (09:13)
[2021-01-29] MEDS: ZINC SULFATE 220 CAPSULE PO SCH (09:13)
[2021-01-29] MEDS: DEXAMETHASONE 4 MG TAB PO SCH (09:13)
[2021-01-29] MEDS: PANTOPRAZOLE 40 MG TAB DR PO SCH (09:15)
[2021-01-29 12:55] VITALS: BP 141/82
[2021-01-29] MEDS ORDERED: HYDROCORTISONE 25 MG SUPPOSITORY PR SCH (13:00)
[2021-01-29] MEDS ORDERED: POLYETHYLENE GLYCOL 3350 17 GM POWD.PACK PO ONE (13:00)
[2021-01-29] MEDS ORDERED: LACTULOSE 20 GM/30 ML UDCUP PO PRN (15:30)
[2021-01-29] MEDS: BISACODYL 10 MG SUPP.RECT RC PRN (16:46)
[2021-01-29 16:53] VITALS: BP 143/83
[2021-01-29 19:40] VITALS: BP 114/69
[2021-01-29] MEDS: INSULIN GLARGINE 100 UNITS/ML 10 ML VIAL SQ SCH (20:26)
[2021-01-29 23:08] VITALS: BP 126/72
[2021-01-30] MEDS: 0.9%NACL 50ML 50 ML IV SCH ×2 (01:13→14:23)
[2021-01-30] MEDS: DOCUSATE SODIUM 100 MG CAP PO SCH ×3 (01:53→17:30)
[2021-01-30 03:54] VITALS: BP 127/78
[2021-01-30 04:49] LABS: HEMATOCRIT 34.9 % (42-54); MEAN CORPUSCULAR HEMOGLOBIN 30.3 pg (27.0-33.0); MEAN CORPUSCULAR HGB CONC 33.5 g/dL (32.0-36.0); MEAN CORPUSCULAR VOLUME 90.4 fL (79-99); PLATELET COUNT (AUTO) 186 K/uL (130-400); RED BLOOD CELL COUNT(AUTO) 3.86 MIL/uL (4.50-6.20); RED CELL DISTRIBUTION WIDTH 13.7 % (11.0-15.5); WHITE BLOOD COUNT (AUTO) 9.4 K/uL (4.8-10.8)
[2021-01-30 05:07] LABS: LYMPHOCYTES % (MANUAL) 7 % (22-44); MAN.DIFF COMMENT-IMPRESSION MANUAL DIFFERENTIAL; MONOCYTES % (MANUAL) 2 % (2-9); SEGMENTED NEUTROPHILS % 91 % (40-70)
[2021-01-30 05:10] LABS: CREATININE 1.4 mg/dL (0.5-1.5); PHOSPHORUS 3.7 mg/dL (2.5-4.9)
[2021-01-30] MEDS: BISACODYL 10 MG SUPP.RECT RC PRN ×2 (05:32→09:05)
[2021-01-30] MEDS: INSULIN HUMULIN R 100 UNIT/ML 3ML SQ SCH ×7 (06:02→19:47)
[2021-01-30] MEDS: PANTOPRAZOLE 40 MG TAB DR PO SCH (06:49)
[2021-01-30 07:58] VITALS: BP 128/84
[2021-01-30] MEDS: DEXAMETHASONE 4 MG TAB PO SCH (09:04)
[2021-01-30] MEDS: ASCORBIC ACID 500 MG TAB PO SCH (09:05)
[2021-01-30] MEDS: AMLODIPINE 5 MG TAB PO SCH (09:05)
[2021-01-30] MEDS: ZINC SULFATE 220 CAPSULE PO SCH (09:05)
[2021-01-30] MEDS: BARICITINIB (EUA) 2 MG TABLET PO SCH (09:05)
[2021-01-30] MEDS ORDERED: PHARMACY COMMUNICATION MISC SCH (10:30)
[2021-01-30 11:29] VITALS: BP 149/89
[2021-01-30] MEDS: MINERAL OIL 30 ML UDCUP PO SCH (12:05)
[2021-01-30 15:45] VITALS: BP 125/70
[2021-01-30 19:45] VITALS: BP 127/75
[2021-01-30] MEDS: INSULIN GLARGINE 100 UNITS/ML 10 ML VIAL SQ SCH (19:57)
[2021-01-30 23:15] VITALS: BP 130/80
[2021-01-31] MEDS: DOCUSATE SODIUM 100 MG CAP PO SCH ×3 (00:02→17:30)
[2021-01-31] MEDS: 0.9%NACL 50ML 50 ML IV SCH ×2 (00:02→14:07)
[2021-01-31 03:16] VITALS: BP 124/75
[2021-01-31] MEDS: INSULIN HUMULIN R 100 UNIT/ML 3ML SQ SCH ×7 (05:48→17:25)
[2021-01-31 07:44] VITALS: BP 114/75
[2021-01-31 08:05] LABS: HEMATOCRIT 38.7 % (42-54); MEAN CORPUSCULAR VOLUME 93.7 fL (79-99); PLATELET COUNT (AUTO) 215 K/uL (130-400); RED BLOOD CELL COUNT(AUTO) 4.13 MIL/uL (4.50-6.20); WHITE BLOOD COUNT (AUTO) 11.8 K/uL (4.8-10.8)
[2021-01-31 08:20] LABS: CREATININE 1.4 mg/dL (0.5-1.5); POTASSIUM 4.7 mmol/L (3.5-5.1)
[2021-01-31] MEDS: ASCORBIC ACID 500 MG TAB PO SCH (08:43)
[2021-01-31] MEDS: ZINC SULFATE 220 CAPSULE PO SCH (08:43)
[2021-01-31] MEDS: DEXAMETHASONE 4 MG TAB PO SCH (08:43)
[2021-01-31] MEDS: AMLODIPINE 5 MG TAB PO SCH (08:43)
[2021-01-31] MEDS: BARICITINIB (EUA) 2 MG TABLET PO SCH (08:43)
[2021-01-31] MEDS: PANTOPRAZOLE 40 MG TAB DR PO SCH (08:43)
[2021-01-31 09:16] LABS: LYMPHOCYTES % (MANUAL) 16 % (22-44); MAN.DIFF COMMENT-IMPRESSION MANUAL DIFFERENTIAL; MONOCYTES % (MANUAL) 2 % (2-9); PLATELET MORPHOLOGY COMMENT ADEQUATE; SEGMENTED NEUTROPHILS % 82 % (40-70)
[2021-01-31 11:48] VITALS: BP 133/77
[2021-01-31] MEDS ORDERED: ENOXAPARIN SODIUM 80 MG/0.8 ML SQ SCH (16:00)
[2021-01-31 16:17] VITALS: BP 130/75
[2021-01-31] MEDS ORDERED: ASCO500T20 PO (16:54)
[2021-01-31] MEDS ORDERED: ZINC220C6 PO (16:54)
[2021-01-31] MEDS ORDERED: DEXA6TAB PO (16:54)
[2021-01-31] MEDS ORDERED: AMLO5TAB4 PO (16:54)
[2021-01-31] MEDS ORDERED: INSLAN SQ (16:54)
[2021-01-31] MEDS ORDERED: APIX5TAB PO (16:54)
[2021-01-31 19:30] VITALS: BP 120/77
[2021-01-31] MEDS ORDERED: INSULIN GLARGINE 100 UNITS/ML 10 ML VIAL SQ SCH (21:00)
== END 2021-01-31 21:10 | disposition home or self-care (01) | DRG 177 ==
LOC: EDH 15:52 → INTOOBSV 18:53 → OBSVTOIN 18:53 → EDHIP 18:53 → 4BH 23:15 → 2AH 01-19 15:59
PROVIDERS: ADMIT Internal Medicine; ATTEND Internal Medicine
PROC: 5A0935A Assistance with Respiratory Ventilation, Less than 24 Consecutive Hours, High Flow/Velocity Cannula (ICD-10-PCS; 2021-01-17)
PROC: 5A0935A Assistance with Respiratory Ventilation, Less than 24 Consecutive Hours, High Flow/Velocity Cannula (ICD-10-PCS; 2021-01-18)
PROC: 5A0935A Assistance with Respiratory Ventilation, Less than 24 Consecutive Hours, High Flow/Velocity Cannula (ICD-10-PCS; 2021-01-19)
PROC: 5A0935A Assistance with Respiratory Ventilation, Less than 24 Consecutive Hours, High Flow/Velocity Cannula (ICD-10-PCS; 2021-01-20)
PROC: 5A0935A Assistance with Respiratory Ventilation, Less than 24 Consecutive Hours, High Flow/Velocity Cannula (ICD-10-PCS; 2021-01-21)
PROC: 5A0935A Assistance with Respiratory Ventilation, Less than 24 Consecutive Hours, High Flow/Velocity Cannula (ICD-10-PCS; 2021-01-22)
PROC: XW033E5 Introduction of Remdesivir Anti-infective into Peripheral Vein, Percutaneous Approach, New Technology Group 5 (ICD-10-PCS; principal; 2021-01-23)
PROC: 5A0935A Assistance with Respiratory Ventilation, Less than 24 Consecutive Hours, High Flow/Velocity Cannula (ICD-10-PCS; 2021-01-23)
PROC: 5A0935A Assistance with Respiratory Ventilation, Less than 24 Consecutive Hours, High Flow/Velocity Cannula (ICD-10-PCS; 2021-01-24)
PROC: 5A0935A Assistance with Respiratory Ventilation, Less than 24 Consecutive Hours, High Flow/Velocity Cannula (ICD-10-PCS; 2021-01-25)
DX: U07.1 COVID-19 (principal); J12.82 Pneumonia due to coronavirus disease 2019; E43 Unspecified severe protein-calorie malnutrition; J80 Acute respiratory distress syndrome; G93.41 Metabolic encephalopathy; E87.1 Hypo-osmolality and hyponatremia; N17.9 Acute kidney failure, unspecified; D68.59 Other primary thrombophilia; I82.619 Acute embolism and thrombosis of superficial veins of unspecified upper extremity; E87.0 Hyperosmolality and hypernatremia; D69.6 Thrombocytopenia, unspecified; N18.9 Chronic kidney disease, unspecified; E11.65 Type 2 diabetes mellitus with hyperglycemia; E11.22 Type 2 diabetes mellitus with diabetic chronic kidney disease; I12.9 Hypertensive chronic kidney disease with stage 1 through stage 4 chronic kidney disease, or unspecified chronic kidney disease; D69.59 Other secondary thrombocytopenia; E11.649 Type 2 diabetes mellitus with hypoglycemia without coma; E86.0 Dehydration; R77.8 Other specified abnormalities of plasma proteins; E87.8 Other disorders of electrolyte and fluid balance, not elsewhere classified; K56.41 Fecal impaction; T38.0X5A Adverse effect of glucocorticoids and synthetic analogues, initial encounter; Y92.89 Other specified places as the place of occurrence of the external cause; Z79.4 Long term (current) use of insulin; Z87.891 Personal history of nicotine dependence; Z68.22 Body mass index [BMI] 22.0-22.9, adult
CPT/HCPCS: 36415; 36600; 70450; 71045; 74018; 76770; 80048; 80053; 81001; 82435; 82550; 82570; 82803; 82947; 82948; 83036; 83605; 83615; 83735; 84100; 84132; 84145; 84156; 84295; 84300; 84484; 84550; 85018; 85025; 85027; 85378; 85651; 86140; 87040; 87635; 93005; 93970; 93971; 94760; 97039; C9113; C9803; G0378; J0360; J0456; J0696; J1100; J1644; J1650; J1815; J2405; J2543; J2920; J2930; J3490; J7050; J7070; J8540; Q0169

== ENCOUNTER 2023-09-02 08:43 | Emergency (ER) | payer OTHER ==
[~2023-09-02] VITALS: Ht 162.6 cm; Wt 66.7 kg
[~2023-09-02 08:43] MED LIST changes: -ALBUHFA IH; +AMLO5TAB4 PO; +APIX5TAB PO; +ASCO500T20 PO; +ATOR10 PO; -D-ME1POW16 PO; +DEXA6TAB PO; +EMPA10TA PO; -FLUT1DIS IH; +GLIP-162 PO; -GLIP1TAB6 PO; +HYDR25SU38 RC; +INSLAN SQ; -IVER3TAB PO; -LEVO500T2 PO; -LINA5TAB PO; -OSEL75 PO; -PRED50TA2 PO; +ZINC220C6 PO
[2023-09-02 09:15] LABS: BASOPHILS # (AUTO) 0.07 K/uL (0.00-0.20); BASOPHILS % (AUTO) 0.7 % (0.0-5.0); EOSINOPHILS # (AUTO) 0.04 K/uL (0.00-0.70); EOSINOPHILS % (AUTO) 0.4 % (0.0-8.0); HEMATOCRIT 27.2 % (42-54); IMMATURE GRANULOCYTE ABSOLUTE 0.07 K/uL (0-1); LYMPHOCYTES # (AUTO) 1.5 K/uL (1.0-4.8); LYMPHOCYTES % (AUTO) 15.6 % (21.0-51.0); MEAN CORPUSCULAR HEMOGLOBIN 30.7 pg (27.0-33.0); MEAN CORPUSCULAR HGB CONC 33.1 g/dL (32.0-36.0); MEAN CORPUSCULAR VOLUME 92.8 fL (79-99); MONOCYTES # (AUTO) 0.6 K/uL (0.1-1.0); MONOCYTES % (AUTO) 5.8 % (3.0-13.0); NEUTROPHILS # (AUTO) 7.2 K/uL (1.8-7.7); NEUTROPHILS % (AUTO) 76.8 % (40.0-77.0); PLATELET COUNT (AUTO) 133 K/uL (130-400); RED BLOOD CELL COUNT(AUTO) 2.93 MIL/uL (4.50-6.20); RED CELL DISTRIBUTION WIDTH 14.7 % (11.0-15.5); WHITE BLOOD COUNT (AUTO) 9.4 K/uL (4.8-10.8)
[2023-09-02 09:22] LABS: INR 1.06 (0.85-1.15); PROTHROMBIN TIME 12.5 SEC (9.6-11.6)
[2023-09-02 09:24] LABS: PARTIAL THROMBOPLASTIN TIME 38.7 SEC (26.3-35.5)
[2023-09-02] MEDS: METOCLOPRAMIDE 10 MG/2 ML VIAL IVP ONE (09:30)
[2023-09-02] MEDS: PANTOPRAZOLE 40 MG/VIAL IVP ONE (09:30)
[2023-09-02 09:59] LABS: APPEARANCE,URINE CLOUDY (CLEAR); BILIRUBIN,URINE NEGATIVE (NEGATIVE); COLOR,URINE YELLOW (YELLOW); GLUCOSE, URINE (UA) 200 mg/dL (NEGATIVE); KETONES,URINE NEGATIVE (NEGATIVE); LEUKOCYTE ESTERASE ,URINE NEGATIVE Leu/uL (NEGATIVE); NITRATE,URINE NEGATIVE (NEGATIVE); OCCULT BLOOD,URINE MODERATE (NEGATIVE); PROTEIN,URINE 50 mg/dL (NEGATIVE); UROBILINOGEN,URINE 0.2 mg/dL (0.2-1.0)
[2023-09-02 10:03] LABS: CREATININE 1.9 mg/dL (0.5-1.3); POTASSIUM 4.5 mmol/L (3.5-5.1)
[2023-09-02 10:09] LABS: ADD UA MICROSCOPIC YES
[2023-09-02 10:13] LABS: BACTERIA,URINE RARE /HPF (None Seen); WBC,URINE 0-1 /HPF (0-1)
[2023-09-02 10:16] LABS: BILIRUBIN,TOTAL 0.5 mg/dL (0.2-1.0); MAGNESIUM 1.8 mg/dL (1.80-2.40); THYROID STIMULATING HORMONE 0.76 uIU/mL (0.36-3.74); TOTAL PROTEIN, SERUM 7.7 g/dL (6.0-8.3)
[2023-09-02 13:16] VITALS: BP 149/80; PULSE 103; RESP 20; O2SAT 99
[2023-09-02] MEDS ORDERED: FAMO-136 PO (13:30)
[2023-09-02] MEDS ORDERED: METO-296 PO (13:30)
== END 2023-09-02 15:23 | disposition home or self-care (01) ==
LOC: EDH 08:43
DX: R06.6 Hiccough (principal); I10 Essential (primary) hypertension; E78.00 Pure hypercholesterolemia, unspecified; E11.9 Type 2 diabetes mellitus without complications; Z90.49 Acquired absence of other specified parts of digestive tract; Z79.4 Long term (current) use of insulin; Z79.899 Other long term (current) drug therapy
CPT/HCPCS: 99285; 96374; 96375; 84443; 82550; 83735; 84484; 80053; 83690; 85025; 85610; 85730; 86850; 86900; 86901; 83605; 81001; 36415; 93005; C9113; J2765